=== PATIENT | female | born 1955 | race Caucasian/White ===

== ENCOUNTER → 2017-12-15 | Outpatient (CLI) | payer OTHER ==
[~2017-12-15] MED LIST: THYR32.517 PO
--- NOTE | 2017-12-15 20:04 | RT STRESS TEST REPORT ---
[place] [facility] [place] NAME: SARI HYMAN : [id number] MR: [id number] V: [id number] EXAM DATE: ORDERING PHYSICIAN: LI GONZALEZ TECHNOLOGIST: Yomi Acquisition Time: 2017-12-15 07:18:59 Total Exercise Time: 00:08:01 Test Indications: Chest Discomfort Medications: Protocol: COMLY/GLADIS Max HR: 151 BPM 96% of Pred: 156 BPM Max BP: 164/096 mmHG Max Work Load: 10.1 METS see echo report Confirmed by ATUL SHAH ([id number]) on 12/15/2017 8:03:49 PM Referred By: Overread By: ATUL SHAH
--- NOTE | 2017-12-16 08:51 | RADIOLOGY IMAGING REPORT ---
FACILITY: [facility] - [place] PATIENT NAME: SARI HYMAN : [id number] MR: [id number] V: [id number] EXAM DATE: ORDERING PHYSICIAN: LI GONZALEZ TECHNOLOGIST: Daniella Estrada PROCEDURE: STRESS ECHOCARDIOGRAPHY COMPARISON: None. INDICATIONS: CHEST DISCOMFORT. FINDINGS: After informed consent the patient was exercised using the Enoch protocol. She was able to complete 2 minutes of stage 3 of the Enoch protocol at which time she achieved 10.1 mets and 96% of predicted maximum heart rate. She had no complaints of any chest pain or chest pressures. Her baseline EKG showed normal sinus rhythm with nonspecific ST segment changes in V4 through V6. With exercise, there was no ST segment change of ischemia, no arrhythmias were noted. ECHOCARDIOGRAPHIC PORTION OF STRESS TEST: At rest the patient had normal left ventricular ejection fraction of 72% with a grade 1/4 decrease in diastolic function. Trace to mild amount of mitral insufficiency is noted. A trace amount of aortic insufficiency and pulmonic insufficiency also noted. No stenosis of the valves was noted. There was a mild to moderate amount of tricuspid insufficiency with estimated right ventricular systolic pressure within normal range at 29 mmHg. With exercise the patient had normal hyperdynamic response to exercise with no left ventricular segmental wall motion abnormalities. OVERALL IMPRESSION: 1. Normal stress echocardiogram with normal left ventricular function systolically at rest with hyperdynamic response to exercise and low probability of ischemia. 2. A grade 1/4 decrease in diastolic function. 3. A trace to mild amount of mitral insufficiency, a mild to moderate amount of tricuspid insufficiency and a trace of aortic and pulmonic insufficiency with no stenosis of any of the valves. The right ventricular pressure was within normal range at 29 mmHg. 4. It also should be noted that the patient had elevated blood pressures at rest but went up appropriately with exercise. She states that she has white coat hypertension and that normally her blood pressures are well within normal ranges. Dictated by: Randall Skaggs M.D. on 12/15/2017 at 19:58 Transcribed by: CLINT on 12/15/2017 at 20:18 Approved by: Randall Skaggs M.D. on 12/16/2017 at 8:50 [facility] [employer]
== END ==
LOC: RESP 01:35
PROVIDERS: ATTEND Internal Medicine Cardiovascular Disease
DX: R07.2 Precordial pain (principal); I34.0 Nonrheumatic mitral (valve) insufficiency; I36.1 Nonrheumatic tricuspid (valve) insufficiency; I35.1 Nonrheumatic aortic (valve) insufficiency; I37.1 Nonrheumatic pulmonary valve insufficiency
CPT/HCPCS: 93017; 93325; 93350

== ENCOUNTER → 2018-09-16 | Outpatient (CLI) | payer MEDICARE, OTHER ==
--- NOTE | 2018-09-16 19:19 | RADIOLOGY IMAGING REPORT ---
[place] [facility] [place] Sydni Sharma : 1955 MR: [id number] V: [id number] EXAM DATE: ORDERING PHYSICIAN: ALBERT WONG TECHNOLOGIST: [facility] Patient: Sydni Sharma : 1955 Visit/Account:[id number] Date of Sevice: 09/16/2018 BONE MINERAL DENSITY HISTORY: Osteopenia COMPARISON: DEXA 05/24/2001 FINDINGS: LUMBAR SPINE: Bone mineral density (BMD) measured from 1-L4 correlates with a Z-score of -0.9 and a T-score of -2.9 which is osteoporosis as defined by the World Health Organization. The corresponding risk of fractu re in the lumbar spine is 9X compared with a young adult reference population. This value has decrea sed by 29.7% since the prior study. More than 5% change is considered significant. HIP: Bone mineral density (BMD) measured in the left total hip region correlates with a Z-score of -0.6 an d a T-score of -2.1 which is osteopenia as defined by the World Health Organization. The correspondi ng risk of fracture in the hip is for access compared with a young adult reference population. This value has increased by 22.9% since the prior study. More than 5% change is considered significant. Bone mineral density (BMD) measured in the left Femoral Neck region measures 0.747 g/cm2. IMPRESSION: 1. Lumbar spine: Osteoporosis. There has been significant decrease in the bone mineral density sin ce the previous exam. 2. Left Total Hip: Osteopenia. There has been significant decrease in the bone mineral density sin ce the previous exam. 3. Left Femoral Neck: Bone Mineral Density is 0.747 g/cm2. The next DEXA scan of this patient should include the following sites: L1-L4, left hip. FRAX? WHO Fracture Risk Assessment Tool link: <http://www.shef.ac.uk/FRAX/tool.jsp?locationValue=9> PLEASE NOTE: 1) The World Health Organization defines low BMD as follows: T-score Normal > -1 Osteopenia < -1 and > -2.5 Osteoporosis < -2.5 without fractures Established osteoporosis < -2.5 with fractures 2) In general, you may wish to consider: Diagnosis Treatment Follow-up DEXA Normal BMD Prevention 2-3 years Osteopenia Prevention/therapy 1-2 years Osteoporosis Therapy Yearly 3) Fracture risk estimated from the T-score is more accurate for vertebral fractures (often spontane ous) than for hip fractures. Report Dictated By: Berhane Sanchez DO at 09/16/2018 7:13 PM Report E-Signed By: Berhane Sanchez DO at 09/16/2018 7:16 PM WSN:[id number]
== END ==
LOC: RAD 09-14 13:34
PROVIDERS: ATTEND Nurse Practitioner Family
DX: M81.0 Age-related osteoporosis without current pathological fracture (principal); M85.80 Other specified disorders of bone density and structure, unspecified site; Z78.0 Asymptomatic menopausal state
CPT/HCPCS: 77080